=== PATIENT | male | born 1990 | race Asian ===

== ENCOUNTER 2018-02-20 13:52 | Emergency (ER) | payer OTHER ==
[2018-02-20 14:07] VITALS: BP 121/73
--- NOTE | 2018-02-20 15:13 | XRAY Report ---
Procedure Date: 02/20/2018 Accession Number: [id number] / [id number] Procedure: XR - Knee 4 View LT CPT Code: FULL RESULT: EXAM: LEFT KNEE RADIOGRAPHY EXAM DATE: 02/20/2018 02:57 PM. CLINICAL HISTORY: Hx of knee surgery, slipped onto left knee today,. COMPARISON: 2015. TECHNIQUE: 3 views. FINDINGS: Bones: Normal. No fractures or bone lesions. Joints: No joint effusion. Joint space is preserved. Soft Tissues: Normal. No soft tissue swelling. IMPRESSION: No fracture or subluxation. RADIA
--- NOTE | 2018-02-20 15:54 | ED Physician Documentation ---
PD HPI LOWER EXT INJURY - Stated complaint Stated Complaint: LT KNEE PAIN - Chief complaint Chief Complaint: Ext Problem - History obtained from History obtained from: Patient, Family - History of Present Illness PD HPI LOW EXT INJURY LOCATION: Left, Knee Type of injury: Fall Where injury occurred: Home Timing - onset: Today Timing - duration: Minutes Timing - details: Abrupt onset, Still present Improved by: Rest, Immobilization Worsened by: Moving, Palpating Associated symptoms: No: Weakness, Numbness, Tingling, Swelling, Discolored Contributing factors: Prior ortho surgery. No: Anticoagulated Similar symptoms before: Diagnosis (juan diego schlater) Recently seen: Not recently seen - Additional information Additional information: 27-year-old male with a prior injury to his left knee with surgery for Juan Diego- Schlatter has taken a fall in the shower today and landed directly on the patellar tendon. He has some pain in this tendon and pain with weightbearing. Review of Systems Constitutional: denies: Fever Respiratory: denies: Cough GI: denies: Vomiting Musculoskeletal: reports: Extremity pain, Joint pain, Pain with weight bearing. denies: Neck pain, Back pain, Extremity swelling, Joint swelling Neurologic: denies: Generalized weakness, Focal weakness, Numbness PD PAST MEDICAL HISTORY - Past Medical History Cardiovascular: None Respiratory: Other Endocrine/Autoimmune: None GI: None : None Psych: None Musculoskeletal: Other Derm: None - Present Medications Home Medications: Ambulatory Orders Medication Instructions Recorded Confirmed Ibuprofen [Motrin] 400 mg PO BID 03/11/16 03/11/16 - Allergies Allergies/Adverse Reactions: Allergies Allergy/AdvReac Type Severity Reaction Status Date / Time No Known Drug Allergies Allergy Verified 02/20/18 14:07 PD ED PE NORMAL - Vitals Vital signs reviewed: Yes (normal ) - General General: Alert and oriented X 3, No acute distress, Well developed/nourished - HEENT HEENT: Atraumatic, PERRL, EOMI - Neck Neck: Supple, no meningeal sign - Respiratory Respiratory: No respiratory distress - Derm Derm: Normal color, Warm and dry, No rash - Extremities Extremities: No deformity, No edema, Other (There is specific tenderness to the patellar tendon. The ligaments are stable to testing and there is no palpable joint effusion. ) - Neuro Neuro: Alert and oriented X 3, No motor deficit, No sensory deficit, Normal speech Eye Opening: Spontaneous Motor: Obeys Commands Verbal: Oriented GCS Score: 15 - Psych Psych: Normal mood, Normal affect Results - Vitals Vitals: Vital Signs - 24 hr 02/20/18 14:04 Temperature 37.3 C Heart Rate 88 Respiratory 18 Rate Blood Pressure 121/73 O2 Saturation 98 Oxygen O2 Source Room air - Rads (name of study) left knee Radiology: Prelim report reviewed (Impression: No fracture or subluxation.), EMP read indepedently, See rad report PD MEDICAL DECISION MAKING - ED course Complexity details: reviewed results, re-evaluated patient, considered differential, d/w patient, d/w family ED course: 27-year-old male with a prior knee surgery to his left patellar tendon has fallen and struck the patellar tendon directly. He has pain with weightbearing and use of the knee and he is placed into a knee immobilizer. We will have him follow-up with orthopedics. - Sepsis Event Vital Signs: Vital Signs - 24 hr 02/20/18 14:04 Temperature 37.3 C Heart Rate 88 Respiratory 18 Rate Blood Pressure 121/73 O2 Saturation 98 Oxygen O2 Source Room air Departure - Departure Disposition: 01 Home, Self Care Clinical Impression: Strain of patellar tendon Qualifiers: Encounter type: initial encounter Laterality: left Qualified Code(s): S86.812A - Strain of other muscle(s) and tendon(s) at lower leg level, left leg, initial encounter Condition: Stable Instructions: Jumpers Knee Ch Follow-Up: Gene Felix MD [Primary Care Provider] - [facility] [Provider Group] Forms: Activity restrictions
== END 2018-02-20 16:10 | disposition home or self-care (01) ==
LOC: ED 13:52
DX: S86.812A Strain of other muscle(s) and tendon(s) at lower leg level, left leg, initial encounter (principal); W18.2XXA Fall in (into) shower or empty bathtub, initial encounter; Y93.E1 Activity, personal bathing and showering; Y92.002 Bathroom of unspecified non-institutional (private) residence as the place of occurrence of the external cause
CPT/HCPCS: 99283

== ENCOUNTER 2018-02-23 00:09 | Emergency (ER) | payer OTHER ==
[2018-02-23 00:19] VITALS: BP 126/74
--- NOTE | 2018-02-23 01:26 | ED Physician Documentation ---
History of Present Illness - Stated complaint Stated Complaint: L KNEE PX - Chief complaint Chief Complaint: Ext Problem - History obtained from History obtained from: Patient - History of Present Illness Timing: Other (02/20) Pain level now: 4 Improved by: immobilization Worsened by: movement - Additonal information Additional information: sustained injury 2 days ago to left knee, which is site of surgery on patellar ligament 2 years ago. given work excuse x 2 days and is to follow up Monday ( scheduled) with his orthopedic surgeon. his work note today, and he received new instructions today at [facility] clearing him for activity such as situps and pushups. he presents tonight to this ED requesting clarification of what activity/restrictions are advised for the time until he is seen by orthopedics Monday. Review of Systems Musculoskeletal: reports: Extremity pain, Joint pain, Pain with weight bearing Neurologic: denies: Focal weakness, Numbness PD PAST MEDICAL HISTORY - Past Medical History Cardiovascular: None Respiratory: Other Endocrine/Autoimmune: None GI: None : None Psych: None Musculoskeletal: Other Derm: None - Past Surgical History Past Surgical History: No - Present Medications Home Medications: Ambulatory Orders Medication Instructions Recorded Confirmed Ibuprofen [Motrin] 400 mg PO BID 03/11/16 03/11/16 - Allergies Allergies/Adverse Reactions: Allergies Allergy/AdvReac Type Severity Reaction Status Date / Time No Known Drug Allergies Allergy Verified 02/23/18 00:19 - Social History Does the pt smoke?: No Smoking Status: Never smoker Does the pt drink ETOH?: No Does the pt have substance abuse?: No - Immunizations Immunizations are current?: Yes - POLST Patient has POLST: No PD ED PE NORMAL - Vitals Vital signs reviewed: Yes - General General: Alert and oriented X 3, No acute distress, Well developed/nourished - Extremities Extremities: No deformity, No edema, No calf tenderness / cord - Neuro Neuro: No motor deficit, No sensory deficit PD ED PE EXPANDED - Extremities Extremities: Left knee (tenderness inferior to patella without edema or crepitus ) Results - Vitals Vitals: Oxygen O2 Source Room air PD MEDICAL DECISION MAKING - ED course Complexity details: reviewed old records, considered differential, d/w patient - Sepsis Event Vital Signs: Oxygen O2 Source Room air Departure - Departure Disposition: Home, Self Care Clinical Impression: Strain of patellar tendon Condition: Good Instructions: ED Sprain Knee Comments: Follow up with your orthopedic surgeon Monday as scheduled Forms: Activity restrictions Discharge Date/Time: 02/23/18 01:54
== END 2018-02-23 01:54 | disposition home or self-care (01) ==
LOC: ED 00:09
DX: S76.112A Strain of left quadriceps muscle, fascia and tendon, initial encounter (principal); X58.XXXA Exposure to other specified factors, initial encounter
CPT/HCPCS: 99281; 99283

== ENCOUNTER 2018-04-24 10:23 | Emergency (ER) | payer OTHER ==
[2018-04-24 10:42] VITALS: BP 130/84
--- NOTE | 2018-04-24 11:24 | ED Physician Documentation ---
PD HPI OPHTHO - Stated complaint Stated Complaint: EYE PX - Chief complaint Chief Complaint: Heent - History obtained from History obtained from: Patient - History of Present Illness Timing - onset: Last night Timing - details: Gradual onset (he felt some discomfort of eyelid last evening , and has swelling and tenderness worse lateral riht upper eyelid.) Quality / character: Burning. No: Itching, Aching Associated symptoms: Redness, Swelling. No: Discharge, Matting, FB sensation, Photophobia, Loss of vision, Headache Contributing factors: No: Recent URI, FB, Wears contacts Similar symptoms before: Has not had sx before Recently seen: Not recently seen Review of Systems Constitutional: denies: Fever Eyes: denies: Loss of vision, Decreased vision, Photophobia Ears: denies: Loss of hearing, Ear pain Nose: denies: Rhinorrhea / runny nose, Congestion Throat: reports: Sore throat Skin: denies: Rash, Lesions PD PAST MEDICAL HISTORY - Past Medical History Cardiovascular: None Respiratory: Other Endocrine/Autoimmune: None GI: None : None Psych: None Musculoskeletal: Other Derm: None - Past Surgical History Past Surgical History: No - Present Medications Home Medications: Ambulatory Orders Medication Instructions Recorded Confirmed Erythromycin Base [Erythromycin 1 applic OP QID #1 tube 04/24/18 Ophthalmic Ointment] Naproxen 375 mg PO BID #20 tablet 04/24/18 Sulfamethox/Trimeth 800/160 1 each PO BID #10 tablet 04/24/18 [Bactrim Ds 800/160] - Allergies Allergies/Adverse Reactions: Allergies Allergy/AdvReac Type Severity Reaction Status Date / Time No Known Drug Allergies Allergy Verified 04/24/18 10:42 - Social History Does the pt smoke?: No Smoking Status: Never smoker Does the pt drink ETOH?: No Does the pt have substance abuse?: No - Immunizations Immunizations are current?: Yes - POLST Patient has POLST: No PD ED PE NORMAL - Vitals Vital signs reviewed: Yes - General General: Alert and oriented X 3, No acute distress, Well developed/nourished - HEENT HEENT: Atraumatic, PERRL, EOMI, Ears normal, Pharynx benign - Neck Neck: Supple, no meningeal sign, No adenopathy PD ED PE EXPANDED - Eyes Eyes: Eyelid swelling, Eyelid erythema (lateral upper lid). No: Exudate, Corneal FB, Fluorescein uptake Results - Vitals Vitals: Vital Signs - 24 hr 04/24/18 10:40 Temperature 36.1 C L Heart Rate 81 Respiratory 20 Rate Blood Pressure 130/84 H O2 Saturation 98 Oxygen O2 Source Room air PD MEDICAL DECISION MAKING - ED course Complexity details: considered differential (redness with swelling lateral right eyelid. Underside with small white point but no drainage. c/w stye/ infection.), d/w patient - Sepsis Event Vital Signs: Vital Signs - 24 hr 04/24/18 10:40 Temperature 36.1 C L Heart Rate 81 Respiratory 20 Rate Blood Pressure 130/84 H O2 Saturation 98 Oxygen O2 Source Room air Departure - Departure Disposition: Home, Self Care Clinical Impression: Stye Qualifiers: Laterality: right Eyelid: upper Qualified Code(s): H00.011 - Hordeolum externum right upper eyelid Condition: Stable Record reviewed to determine appropriate education?: Yes Instructions: ED Chal[place] Follow-Up: RAHAT SANTIAGO MD [Primary Care Provider] - Prescriptions: Erythromycin Base [Erythromycin Ophthalmic Ointment] 1 applic OP QID #1 tube Naproxen 375 mg PO BID #20 tablet Sulfamethox/Trimeth 800/160 [Bactrim Ds 800/160] 1 each PO BID #10 tablet Comments: Warm moist compresses to the eyelid several times through the day. Erythromycin antibiotic ointment to the eyelid as directed. Naproxen anti- inflammatory. Bactrim oral antibiotic twice daily for 5 days. Recheck if not improving over the next few days. Forms: Activity restrictions Discharge Date/Time: 04/24/18 12:30
== END 2018-04-24 12:30 | disposition home or self-care (01) ==
LOC: ED 10:23
DX: H00.011 Hordeolum externum right upper eyelid (principal)
CPT/HCPCS: 99283

== ENCOUNTER 2018-05-24 12:02 | Emergency (ER) | payer OTHER ==
[2018-05-24] MEDS ORDERED: DEXAMETHASONE 10 MG/ML VIAL PO STA (14:04)
[2018-05-24] MEDS ORDERED: NAPROXEN 250 MG TABLET PO STA (14:04)
[2018-05-24] MEDS ORDERED: ACETAMINOPHEN 500 MG TABLET PO STA (14:04)
--- NOTE | 2018-05-24 14:07 | ED Physician Documentation ---
History of Present Illness - Stated complaint Stated Complaint: NECK PX, CHILLS, SORE THROAT - Chief complaint Chief Complaint: Heent - Additonal information Additional information: 27-year-old male presents the emergency department with 2 days of increasing sore throat, body aches, chills and feeling feverish, the patient also feels soreness throughout his upper shoulders and neck. The patient denies any relieving factors, No nasal congestion, cough, ear pain or dental pain. No shortness of breath or abdominal pain. Symptoms are described as moderate. No other associated symptoms. Review of Systems Constitutional: reports: Fever, Chills, Myalgias, Fatigue Ears: denies: Ear pain Nose: denies: Rhinorrhea / runny nose, Congestion Throat: reports: Sore throat Respiratory: denies: Cough GI: denies: Vomiting : denies: Dysuria Skin: denies: Rash Musculoskeletal: denies: Neck pain Immunocompromised: denies: Chemotherapy PD PAST MEDICAL HISTORY - Past Medical History Past Medical History: Yes Cardiovascular: None Respiratory: Sleep apnea, Other Neuro: None Endocrine/Autoimmune: None GI: None : None Psych: None Musculoskeletal: Other Derm: None - Past Surgical History Past Surgical History: Yes Ortho: Arthroscopic surgery - Allergies Allergies/Adverse Reactions: Allergies Allergy/AdvReac Type Severity Reaction Status Date / Time No Known Drug Allergies Allergy Verified 05/24/18 12:09 - Social History Does the pt smoke?: No Smoking Status: Never smoker Does the pt drink ETOH?: No ETOH Use: Beer Does the pt have substance abuse?: No - Immunizations Immunizations are current?: Yes - POLST Patient has POLST: No PD ED PE NORMAL - General General: Alert and oriented X 3, No acute distress - HEENT HEENT: Atraumatic, PERRL, EOMI, Ears normal, Moist mucous membranes. No: Pharynx benign (The patient has erythematous changes of the bilateral tonsils, the right greater than the left. There is small lesions on the tonsils. There is no evidence of a peritonsillar abscess. The uvula is midline and nonedematous.The floor the mouth is moist and soft and the tongue is within normal limits. There is no evidence of stridor on examination) - Neck Neck: Supple, no meningeal sign, Other (The patient has full active range of motion of the neckPalpable there is lymphadenopathy on the right neck. No large single lymph nodes. Multiple small lymph nodes palpated on examination) - Cardiac Cardiac: RRR, Strong equal pulses - Respiratory Respiratory: No respiratory distress - Derm Derm: Normal color - Neuro Neuro: Alert and oriented X 3, Normal speech Results - Vitals Vitals: Vital Signs - 24 hr 05/24/18 12:06 Temperature 36.8 C Heart Rate 80 Respiratory 16 Rate Blood Pressure 135/71 H O2 Saturation 99 Oxygen O2 Source Room air - Labs Labs: Laboratory Tests 05/24/18 12:07 Group A Strep Rapid Negative PD MEDICAL DECISION MAKING - ED course ED course: The patient appears to have a viral pharyngitis, the patient's soreness in his neck is most likely secondary to the swollen lymph nodes. There is no evidence of peritonsillar abscess, retropharyngeal abscess, meningitis, sepsis or Scooby's angina on examination. Currently, no further workup is warranted in the emergency department at this time. The patient appears appropriate for discharge and ongoing outpatient management. I discussed warning signs and recommended returning to the emergency department immediately for worsening or any concerns. - Sepsis Event Vital Signs: Vital Signs - 24 hr 05/24/18 12:06 Temperature 36.8 C Heart Rate 80 Respiratory 16 Rate Blood Pressure 135/71 H O2 Saturation 99 Oxygen O2 Source Room air Departure - Departure Disposition: 01 Home, Self Care Clinical Impression: Acute tonsillitis Qualifiers: Pharyngitis/tonsillitis etiology: unspecified etiology Qualified Code(s): J03.90 - Acute tonsillitis, unspecified Condition: Good Instructions: ED Pharyngitis Viral, Lymph Nodes Swollen Ch Comments: Please follow-up with primary care for recheck and reevaluation. Please return to the emergency department immediately for worsening symptoms or any concerns.
[2018-05-24] MEDS ORDERED: CHERRY SYRUP 10 ML UDC PO ONE (14:17)
[2018-05-24 14:28] VITALS: BP 119/76
== END 2018-05-24 14:27 | disposition home or self-care (01) ==
LOC: ED 12:02
DX: J03.90 Acute tonsillitis, unspecified (principal)
CPT/HCPCS: 87070; 87430; 99282; 99283; A9270

== ENCOUNTER 2018-10-05 21:26 | Emergency (ER) | payer OTHER ==
[2018-10-05] MEDS ORDERED: HYDROmorphone 1 MG/ML CARPUJECT IVP STA ×2 (21:40→22:18)
[2018-10-05] MEDS ORDERED: SODIUM CHLORIDE 0.9% 1,000 ML IV STA (21:40)
[2018-10-05] MEDS ORDERED: ONDANSETRON 4 MG/2 ML VIAL IVP STA (21:40)
--- NOTE | 2018-10-05 21:49 | ED Physician Documentation ---
PD HPI ABD PAIN - Stated complaint Stated Complaint: SOA/ABD PX - Chief complaint Chief Complaint: Abd Pain - History obtained from History obtained from: Patient, Family - History of Present Illness Timing - onset: How many hours ago (1) Timing - duration: Hours (1) Timing - details: Abrupt onset Pain level max: 10 Pain level now: 10 Quality: Aching, Pain Location: RUQ, Epigastric Radiation: Other (non-radiating) Improved by: Other (nothing) Worsened by: Eating (started after eating steak and noodles) Associated symptoms: Nausea, Diarrhea (once). No: Fever, Vomiting, Hematemesis, Constipation, Melena, Hematochezia, Dysuria, Hematuria, Chest pain Similar symptoms before: Has not had sx before Recently seen: Not recently seen Review of Systems Constitutional: denies: Fever, Chills Ears: denies: Ear pain Nose: denies: Rhinorrhea / runny nose, Congestion Throat: denies: Sore throat Cardiac: denies: Chest pain / pressure Respiratory: denies: Cough : denies: Dysuria Skin: denies: Rash Musculoskeletal: denies: Neck pain, Back pain Neurologic: denies: Headache PD PAST MEDICAL HISTORY - Past Medical History Cardiovascular: None Respiratory: Sleep apnea, Other Neuro: None Endocrine/Autoimmune: None GI: None : None Psych: None Musculoskeletal: Other Derm: None - Past Surgical History Past Surgical History: Yes Ortho: Arthroscopic surgery - Allergies Allergies/Adverse Reactions: Allergies Allergy/AdvReac Type Severity Reaction Status Date / Time No Known Drug Allergies Allergy Verified 05/24/18 12:09 - Social History Does the pt smoke?: No Smoking Status: Never smoker Does the pt drink ETOH?: No Does the pt have substance abuse?: No - Immunizations Immunizations are current?: Yes - POLST Patient has POLST: No PD ED PE NORMAL - Vitals Vital signs reviewed: Yes - General General: Alert and oriented X 3, No acute distress - HEENT HEENT: Moist mucous membranes - Neck Neck: Supple, no meningeal sign - Cardiac Cardiac: RRR, Strong equal pulses - Respiratory Respiratory: No respiratory distress, Clear bilaterally - Abdomen Abdomen: Soft, Other (TTP epigastric and RUQ. negative witt's) - Back Back: No spinal TTP - Derm Derm: Warm and dry, No rash - Neuro Neuro: Alert and oriented X 3 - Psych Psych: Normal mood, Normal affect Results - Vitals Vitals: Vital Signs - 24 hr 10/05/18 10/05/18 10/05/18 21:30 21:34 21:55 Temperature 35.7 C L Heart Rate 70 84 77 Respiratory 18 20 24 Rate Blood Pressure 118/68 117/65 130/87 H O2 Saturation 98 100 100 10/05/18 10/05/18 22:26 23:12 Temperature Heart Rate 72 Respiratory 20 17 Rate Blood Pressure 110/71 O2 Saturation 98 Oxygen O2 Source Room air - Labs Labs: Laboratory Tests 10/05/18 10/05/18 21:40 21:40 WBC 10.9 H RBC 5.17 Hgb 15.4 Hct 45.3 MCV 87.7 MCH 29.8 MCHC 34.0 RDW 13.2 Plt Count 290 MPV 7.5 Neut # (Auto) 5.6 Lymph # (Auto) 4.1 H [place] # (Auto) 0.9 Eos # (Auto) 0.2 Baso # (Auto) 0.1 Absolute Nucleated RBC 0.01 Nucleated RBC % 0.0 Sodium 135 Potassium 3.6 Chloride 99 L Carbon Dioxide 28 Anion Gap 8.0 BUN 14 Creatinine 1.0 Estimated GFR (MDRD) 89 Glucose 128 H Calcium 9.2 Total Bilirubin 0.5 AST 57 H ALT 102 H Alkaline Phosphatase 84 Total Protein 7.7 Albumin 4.4 Globulin 3.3 Albumin/Globulin Ratio 1.3 Lipase 43 - Rads (name of study) RUQ abd US Radiology: Prelim report reviewed, EMP read contemporaneously, See rad report (No cholelithiasis or definite cholecystitis identified. 2. No biliary dilatation seen. 3. Possible polyp or sludge ball in the gallbladder, 6 x 5 mm. ) PD MEDICAL DECISION MAKING - ED course Complexity details: reviewed results, re-evaluated patient, considered differential, d/w patient, d/w family ED course: 28-year-old male with what sounds like biliary colic tonight. He is very well- appearing, nontoxic. Pain resolved in the emergency department. Possible that he passed a small stone? He also may have a sludge ball in the gallbladder. No evidence of cholecystitis. He is pain-free and tolerating p.o. without difficulty. He will follow a low-fat diet and follow-up with his doctor for further investigation and likely HIDA scan for possible dysfunctional gallbladder. Patient counseled regarding signs and symptoms for which I believe and urgent re-evaluation would be necessary. Patient with good understanding of and agreement to plan and is comfortable going home at this time This document was made in part using voice recognition software. While efforts are made to proofread this document, sound alike and grammatical errors may occur. Departure - Departure Disposition: 01 Home, Self Care Clinical Impression: Biliary colic Abdominal pain Qualifiers: Abdominal location: epigastric Qualified Code(s): R10.13 - Epigastric pain Condition: Good Instructions: ED Abdominal Pain Gallstone Poss Follow-Up: your,doctor in 1 week [Other] [facility] [Provider Group] Comments: Return if you worsen, especially for worsening pain or fevers. Drink plenty of fluids and rest. Discharge Date/Time: 10/05/18 23:53
[2018-10-05 22:00] LABS: BASOPHILS # (AUTO) 0.1 10^3/uL (0.0-0.1); BASOPHILS % (AUTO) 0.7 %; EOSINOPHILS # (AUTO) 0.2 10^3/uL (0.0-0.7); EOSINOPHILS % (AUTO) 1.9 %; HGB - HEMOGLOBIN 15.4 g/dL (14.0-18.0); LYMPHOCYTES # (AUTO) 4.1 10^3/uL (1.5-3.5); LYMPHOCYTES % (AUTO) 37.6 %; MEAN CORPUSCULAR HEMOGLOBIN 29.8 pg (27.0-31.0); MEAN CORPUSCULAR VOLUME 87.7 fL (80.0-94.0); MEAN PLATELET VOLUME 7.5 fL (7.4-11.4); MONOCYTES # (AUTO) 0.9 10^3/uL (0.0-1.0); MONOCYTES % (AUTO) 8.3 %; NEUTROPHILS # (AUTO) 5.6 10^3/uL (1.5-6.6); NEUTROPHILS % (AUTO) 51.5 %; PLT - PLATELET COUNT 290 10^3/uL (130-450); RED BLOOD COUNT 5.17 10^6/uL (4.70-6.10); RED CELL DISTRIBUTION WIDTH 13.2 % (12.0-15.0); WHITE BLOOD COUNT 10.9 x10^3/uL (4.8-10.8)
[2018-10-05 22:13] LABS: ALBUMIN 4.4 g/dL (3.2-5.5); ALBUMIN/GLOBULIN RATIO 1.3 (1.0-2.2); BILIRUBIN,TOTAL 0.5 mg/dL (0.2-1.0); CALCIUM 9.2 mg/dL (8.5-10.3); TOTAL PROTEIN 7.7 g/dL (6.7-8.2)
[2018-10-05] MEDS ORDERED: KETOROLAC 30 MG/ML VIAL IVP STA (22:18)
[2018-10-05 23:13] VITALS: BP 110/71
--- NOTE | 2018-10-05 23:17 | Ultrasound Report ---
Reason: RUQ abd pain Procedure Date: 10/05/2018 Accession Number: [id number] / [id number] Procedure: US - Abdomen Limited CPT Code: FULL RESULT: EXAM: ABDOMEN ULTRASOUND LIMITED, RUQ EXAM DATE: 10/05/2018 11:10 PM. CLINICAL HISTORY: Right upper quadrant abdominal pain. COMPARISON: None. TECHNIQUE: Real-time scanning was performed with static images obtained. FINDINGS: Liver: No focal lesion identified. 12.7 cm. Main portal vein flow: Hepatopetal. Gallbladder: Gallbladder wall thickness is upper normal at 3.0 mm. No focal tenderness is noted over the gallbladder, but the patient had received pain medication. Echogenic nonshadowing focus is seen measuring 5 x 6 mm, possibly polyp. Biliary System: CBD measures 2.8 mm. No intrahepatic or extrahepatic ductal dilatation. Other: Right kidney measures 9.7 cm and appears normal. Inferior vena cava is patent where seen. IMPRESSION: 1. No cholelithiasis or definite cholecystitis identified. 2. No biliary dilatation seen. 3. Possible polyp or sludge ball in the gallbladder, 6 x 5 mm. RADIA
== END 2018-10-05 23:53 | disposition home or self-care (01) ==
LOC: ED 21:26
DX: K80.50 Calculus of bile duct without cholangitis or cholecystitis without obstruction (principal)
CPT/HCPCS: 36415; 76705; 80053; 83690; 85025; 96361; 96374; 96376; 99283; 99284; J1170